=== PATIENT | female | born 1995 | race African-American/Black ===

== ENCOUNTER 2019-02-26 12:35 | Emergency (ER) | payer OTHER ==
[2019-02-26 12:52] VITALS: TEMP 98.1; BMI 54.8
[2019-02-26] MEDS ORDERED: ACETAMINOPHEN 325 MG TABLET (FP) PO ONE (14:29)
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
[2019-02-26] MEDS ORDERED: ACETAMINOPHEN 325 MG TABLET (FP) ONE (16:04)
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
[2019-02-26 17:20] VITALS: BP 105/76; PULSE 78
== END 2019-02-26 17:17 | disposition left against medical advice (07) ==
LOC: JER 12:35
DX: S09.8XXA Other specified injuries of head, initial encounter (principal); Y04.2XXA Assault by strike against or bumped into by another person, initial encounter; Y93.89 Activity, other specified; Y92.038 Other place in apartment as the place of occurrence of the external cause; Y99.8 Other external cause status; Y07.01 Husband, perpetrator of maltreatment and neglect
CPT/HCPCS: 70450-TC; 84703; 99281-25